=== PATIENT | male | born 1970 | race Caucasian/White ===

== ENCOUNTER 2021-06-15 15:51 | Inpatient (IN) | payer OTHER ==
[2021-06-15 16:59] VITALS: BMI 25.0
[2021-06-15] MEDS: ALBUTEROL SO4 HFA INHALER IH PRN (17:03)
[2021-06-15] MEDS ORDERED: IBUPROFEN 400 MG TABLET (FP) PO PRN (18:21)
[2021-06-15] MEDS ORDERED: MAGNESIUM HYDROX 2400MG/30ML ORAL SUSPENSION 30 ML CUP PO PRN (18:21)
[2021-06-15] MEDS ORDERED: ONDANSETRON *ODT* 4 MG TABLET SL PRN (18:21)
[2021-06-15] MEDS ORDERED: LOPERAMIDE HCL 2 MG CAPSULE PO PRN (18:21)
[2021-06-15] MEDS ORDERED: ACETAMINOPHEN 325 MG TABLET (FP) PO PRN ×2 (18:21)
[2021-06-15] MEDS ORDERED: MAGNESIUM CITRATE 300 ML BOTTLE PO PRN (18:21)
[2021-06-15] MEDS ORDERED: NICOTINE 10 MG CARTRIDGE (INHALER) IH PRN (18:21)
[2021-06-15] MEDS ORDERED: MENTHOL/PHENOL 1 EACH UD MM PRN (18:21)
[2021-06-15] MEDS ORDERED: BISMUTH SUBSALICYLATE 524 MG/30 ML PO PRN (18:21)
[2021-06-15] MEDS: METHOCARBAMOL 500 MG TABLET PO PRN (20:14)
[2021-06-15] MEDS: cloNIDine HCL 0.1 MG TABLET PO PRN (20:14)
[2021-06-15] MEDS: ALBUTEROL SO4 2.5/IPRATROPIUM 0.5 INH SOL 3 ML VIAL.NEB. NEB SCH (20:15)
[2021-06-15] MEDS: PRENATAL VITAMINS W/ FOLIC ACID TABLET (FP) PO SCH (20:16)
[2021-06-15] MEDS: THIAMINE HCL 100 MG TABLET (FP) PO SCH (22:57)
[2021-06-15] MEDS: MELATONIN 5 MG TABLETS PO SCH (22:57)
[2021-06-15] MEDS: hydrOXYzine PAMOATE 25 MG CAPSULE (FP) PO SCH (22:57)
[2021-06-16] MEDS ORDERED: ALBUTEROL SO4 HFA INHALER IH ONE (00:51)
[2021-06-16] MEDS: hydrOXYzine PAMOATE 25 MG CAPSULE (FP) PO SCH ×5 (06:53→21:54)
[2021-06-16] MEDS ORDERED: methaDONE HCL 10 MG TABLET (FOR DETOX USE ONLY) PO ONE (09:37)
[2021-06-16 09:53] LABS: HEMATOCRIT 39.1 % (35.4-49); HEMOGLOBIN 13.4 GM/dL (11.7-16.9); MCH 30.8 pg (25.7-33.7); MCHC 34.4 g/dl (32.0-35.9); MEAN CELL VOLUME 89.5 fl (80-96); MEAN PLT VOLUME 9.4 fl (7.5-11.1); PLATELET COUNT 197 10^3/uL (134-434); RBC 4.36 M/mm3 (4.00-5.60); WHITE BLOOD COUNT 15.4 K/mm3 (4.0-10.0)
[2021-06-16 10:00] LABS: BLOOD UREA NITROGEN 13.4 mg/dL (7-18); CALCIUM 9.1 mg/dL (8.5-10.1)
[2021-06-16 10:01] LABS: ALBUMIN 3.4 g/dl (3.4-5.0)
[2021-06-16 10:03] LABS: CREATININE 0.8 mg/dL (0.55-1.3)
[2021-06-16 10:05] LABS: BILIRUBIN,TOTAL 1.5 mg/dL (0.2-1); TOT PROT 6.8 g/dl (6.4-8.2)
[2021-06-16] MEDS: PRENATAL VITAMINS W/ FOLIC ACID TABLET (FP) PO SCH (10:24)
[2021-06-16] MEDS: NICOTINE 7 MG/24 HOURS TOPICAL PATCH TD SCH (11:57)
[2021-06-16] MEDS: ALBUTEROL SO4 2.5/IPRATROPIUM 0.5 INH SOL 3 ML VIAL.NEB. NEB SCH ×3 (15:33→23:55)
[2021-06-16] MEDS: ALBUTEROL SO4 HFA INHALER IH PRN (21:25)
[2021-06-16] MEDS: traZODone HCL 50 MG TABLET (FP) PO SCH (21:54)
[2021-06-16] MEDS: MELATONIN 5 MG TABLETS PO SCH (21:55)
[2021-06-16] MEDS: THIAMINE HCL 100 MG TABLET (FP) PO SCH (21:55)
[2021-06-17] MEDS: hydrOXYzine PAMOATE 25 MG CAPSULE (FP) PO SCH ×5 (05:17→21:41)
[2021-06-17] MEDS: METHOCARBAMOL 500 MG TABLET PO PRN ×2 (05:17→09:56)
[2021-06-17] MEDS: diazePAM 5 MG TABLET PO PRN ×3 (05:18→17:48)
[2021-06-17] MEDS: ALBUTEROL SO4 2.5/IPRATROPIUM 0.5 INH SOL 3 ML VIAL.NEB. NEB SCH ×3 (09:32→20:58)
[2021-06-17] MEDS ORDERED: methaDONE HCL 10 MG TABLET (FOR DETOX USE ONLY) ONE (09:41)
[2021-06-17] MEDS: ALBUTEROL SO4 HFA INHALER IH PRN ×2 (09:56→17:52)
[2021-06-17] MEDS: PRENATAL VITAMINS W/ FOLIC ACID TABLET (FP) PO SCH (09:59)
[2021-06-17] MEDS: NICOTINE 7 MG/24 HOURS TOPICAL PATCH TD SCH (09:59)
[2021-06-17 10:08] LABS: SARS-CoV-2 NAA Not Detected (Not Detected)
[2021-06-17 14:15] LABS: BASO % 0.2 % (0-2.0); HEMATOCRIT 36.9 % (35.4-49); HEMOGLOBIN 12.2 GM/dL (11.7-16.9); LYMPH % 10.7 % (8-40); MCHC 32.9 g/dl (32.0-35.9); MEAN PLT VOLUME 9.5 fl (7.5-11.1); MONO % 9.6 % (3.8-10.2); NEUT % 77.5 % (42.8-82.8); PLATELET COUNT 200 10^3/uL (134-434); RBC 4.06 M/mm3 (4.00-5.60); RDW 14.6 % (11.9-15.9); WHITE BLOOD COUNT 12.9 K/mm3 (4.0-10.0)
[2021-06-17 14:25] LABS: BLOOD UREA NITROGEN 14.8 mg/dL (7-18); CALCIUM 8.4 mg/dL (8.5-10.1)
[2021-06-17 14:26] LABS: ALBUMIN 2.8 g/dl (3.4-5.0)
[2021-06-17 14:28] LABS: CREATININE 0.8 mg/dL (0.55-1.3)
[2021-06-17 14:30] LABS: BILIRUBIN,TOTAL 0.9 mg/dL (0.2-1); TOT PROT 5.6 g/dl (6.4-8.2)
[2021-06-17] MEDS: THIAMINE HCL 100 MG TABLET (FP) PO SCH (21:41)
[2021-06-17] MEDS: traZODone HCL 50 MG TABLET (FP) PO SCH (21:41)
[2021-06-17] MEDS: MELATONIN 5 MG TABLETS PO SCH (21:52)
[2021-06-17] MEDS: cloNIDine HCL 0.1 MG TABLET PO PRN (22:03)
[2021-06-18] MEDS: hydrOXYzine PAMOATE 25 MG CAPSULE (FP) PO SCH ×5 (06:30→22:31)
[2021-06-18] MEDS: ALBUTEROL SO4 HFA INHALER IH PRN ×2 (08:51→22:31)
[2021-06-18] MEDS: ALBUTEROL SO4 2.5/IPRATROPIUM 0.5 INH SOL 3 ML VIAL.NEB. NEB SCH ×3 (08:51→20:09)
[2021-06-18] MEDS: diazePAM 5 MG TABLET PO PRN (09:30)
[2021-06-18] MEDS: METHOCARBAMOL 500 MG TABLET PO PRN ×2 (09:30→22:31)
[2021-06-18] MEDS: PRENATAL VITAMINS W/ FOLIC ACID TABLET (FP) PO SCH (09:32)
[2021-06-18] MEDS: NICOTINE 7 MG/24 HOURS TOPICAL PATCH TD SCH (09:37)
[2021-06-18] MEDS ORDERED: methaDONE HCL 10 MG TABLET (FOR DETOX USE ONLY) PO ONE (10:00)
[2021-06-18] MEDS: cloNIDine HCL 0.1 MG TABLET PO PRN ×2 (18:27→22:31)
[2021-06-18] MEDS: MELATONIN 5 MG TABLETS PO SCH (22:31)
[2021-06-18] MEDS: THIAMINE HCL 100 MG TABLET (FP) PO SCH (22:31)
[2021-06-18] MEDS: traZODone HCL 50 MG TABLET (FP) PO SCH (22:32)
[2021-06-19] MEDS: hydrOXYzine PAMOATE 25 MG CAPSULE (FP) PO SCH ×3 (05:51→14:55)
[2021-06-19] MEDS: MAG HYDROX/AL HYDROX/SIMETH 30 ML UNIT-DOSE CUP PO PRN ×2 (07:33→19:08)
[2021-06-19] MEDS: ALBUTEROL SO4 2.5/IPRATROPIUM 0.5 INH SOL 3 ML VIAL.NEB. NEB SCH ×2 (07:34→19:13)
[2021-06-19] MEDS: diazePAM 5 MG TABLET PO PRN (09:35)
[2021-06-19] MEDS ORDERED: methaDONE HCL 10 MG TABLET (FOR DETOX USE ONLY) ONE (09:54)
[2021-06-19] MEDS: predniSONE 20 MG TABLET (UD) PO SCH (10:20)
[2021-06-19] MEDS: NICOTINE 7 MG/24 HOURS TOPICAL PATCH TD SCH (10:21)
[2021-06-19] MEDS: PRENATAL VITAMINS W/ FOLIC ACID TABLET (FP) PO SCH (10:21)
[2021-06-19] MEDS: METHOCARBAMOL 500 MG TABLET PO PRN ×2 (10:21→17:38)
[2021-06-19] MEDS: ALBUTEROL SO4 HFA INHALER IH PRN ×3 (10:24→22:21)
[2021-06-19] MEDS: hydrOXYzine PAMOATE 25 MG CAPSULE (FP) PO PRN (17:38)
[2021-06-19] MEDS: cloNIDine HCL 0.1 MG TABLET PO PRN (17:39)
[2021-06-19] MEDS: traZODone HCL 50 MG TABLET (FP) PO SCH (22:20)
[2021-06-19] MEDS: MELATONIN 5 MG TABLETS PO SCH (22:20)
[2021-06-19] MEDS: THIAMINE HCL 100 MG TABLET (FP) PO SCH (22:20)
[2021-06-20] MEDS: MAG HYDROX/AL HYDROX/SIMETH 30 ML UNIT-DOSE CUP PO PRN (05:50)
[2021-06-20] MEDS: ALBUTEROL SO4 2.5/IPRATROPIUM 0.5 INH SOL 3 ML VIAL.NEB. NEB SCH ×2 (08:59→21:51)
[2021-06-20] MEDS ORDERED: methaDONE HCL 10 MG TABLET (FOR DETOX USE ONLY) PO ONE (10:00)
[2021-06-20] MEDS: PRENATAL VITAMINS W/ FOLIC ACID TABLET (FP) PO SCH (10:18)
[2021-06-20] MEDS: predniSONE 20 MG TABLET (UD) PO SCH (10:18)
[2021-06-20] MEDS: hydrOXYzine PAMOATE 25 MG CAPSULE (FP) PO PRN ×2 (10:19→22:10)
[2021-06-20] MEDS: NICOTINE 7 MG/24 HOURS TOPICAL PATCH TD SCH (10:20)
[2021-06-20] MEDS: ALBUTEROL SO4 HFA INHALER IH PRN (14:25)
[2021-06-20] MEDS: cloNIDine HCL 0.1 MG TABLET PO PRN (22:09)
[2021-06-20] MEDS: MELATONIN 5 MG TABLETS PO SCH (22:09)
[2021-06-20] MEDS: THIAMINE HCL 100 MG TABLET (FP) PO SCH (22:09)
[2021-06-20] MEDS: traZODone HCL 50 MG TABLET (FP) PO SCH (22:09)
[2021-06-21] MEDS: ALBUTEROL SO4 HFA INHALER IH PRN (05:28)
[2021-06-21] MEDS: MAG HYDROX/AL HYDROX/SIMETH 30 ML UNIT-DOSE CUP PO PRN (05:29)
[2021-06-21 06:52] VITALS: PULSE 64
[2021-06-21 08:44] VITALS: BP 124/77; TEMP 96.9
[2021-06-21] MEDS: predniSONE 20 MG TABLET (UD) PO SCH (10:18)
[2021-06-21] MEDS: PRENATAL VITAMINS W/ FOLIC ACID TABLET (FP) PO SCH (10:18)
[2021-06-21] MEDS: ALBUTEROL SO4 2.5/IPRATROPIUM 0.5 INH SOL 3 ML VIAL.NEB. NEB SCH (10:19)
[2021-06-21] MEDS: NICOTINE 7 MG/24 HOURS TOPICAL PATCH TD SCH (10:19)
== END 2021-06-21 10:50 | disposition home or self-care (01) | DRG 773 ==
LOC: YASAS 15:51 → Y3N 19:01
PROVIDERS: ADMIT Allergy & Immunology; ATTEND Allergy & Immunology
PROC: HZ2ZZZZ Detoxification Services for Substance Abuse Treatment (ICD-10-PCS; principal; 2021-06-15)
DX: F11.23 Opioid dependence with withdrawal (principal); F14.20 Cocaine dependence, uncomplicated; F17.210 Nicotine dependence, cigarettes, uncomplicated; F19.24 Other psychoactive substance dependence with psychoactive substance-induced mood disorder; F41.9 Anxiety disorder, unspecified; F32.A Depression, unspecified; J45.901 Unspecified asthma with (acute) exacerbation; Z56.0 Unemployment, unspecified; Z59.01 Sheltered homelessness
CPT/HCPCS: 36415; 71046-TC-FY; 80053; 82947; 85025; 85027; 86780; 87811; 94640; C9803; J0735; U0003; U0005

== ENCOUNTER 2021-06-18 09:55 | Emergency (ER) | payer OTHER ==
[2021-06-18 10:00] VITALS: BP 135/69; PULSE 114; TEMP 98.9; BMI 25.0
[2021-06-18] MEDS: ALBUTEROL SO4 2.5/IPRATROPIUM 0.5 INH SOL 3 ML VIAL.NEB. NEB SCH ×3 (10:29→11:15)
[2021-06-18] MEDS ORDERED: predniSONE 20 MG TABLET (UD) PO ONE (10:42)
[2021-06-18] MEDS ORDERED: predniSONE 20 MG TABLET (UD) ONE (10:58)
[2021-06-18] MEDS ORDERED: ALBUTEROL SO4 2.5/IPRATROPIUM 0.5 INH SOL 3 ML VIAL.NEB. NEB ONE ×2 (10:58→11:33)
== END 2021-06-18 13:00 | disposition home or self-care (01) ==
LOC: JER 09:55
PROC: 3E0F7GC Introduction of Other Therapeutic Substance into Respiratory Tract, Via Natural or Artificial Opening (ICD-10-PCS; principal; 2021-06-18)
DX: J45.21 Mild intermittent asthma with (acute) exacerbation (principal)
CPT/HCPCS: 99283-25

== ENCOUNTER 2022-07-04 15:57 | Inpatient (IN) | payer OTHER ==
[2022-07-04 19:20] VITALS: BMI 26.3
[2022-07-04] MEDS ORDERED: IBUPROFEN 600 MG TABLET (FP) PO PRN (19:41)
[2022-07-04] MEDS ORDERED: NALOXONE HCL (KLOXXADO) 8 MG SPRAY NS PRN (19:41)
[2022-07-04] MEDS ORDERED: BISMUTH SUBSALICYLATE 524 MG/30 ML PO PRN (19:41)
[2022-07-04] MEDS ORDERED: IBUPROFEN 400 MG TABLET (FP) PO PRN (19:41)
[2022-07-04] MEDS ORDERED: guaiFENesin 600 MG TABLET.ER (FP) PO PRN (19:41)
[2022-07-04] MEDS ORDERED: NICOTINE POLACRILEX 2 MG GUM BUC PRN (19:41)
[2022-07-04] MEDS ORDERED: ONDANSETRON *ODT* 4 MG TABLET SL PRN (19:41)
[2022-07-04] MEDS ORDERED: MAG HYDROX/AL HYDROX/SIMETH 30 ML UNIT-DOSE CUP PO PRN (19:41)
[2022-07-04] MEDS ORDERED: MAGNESIUM HYDROX 2400MG/30ML ORAL SUSPENSION 30 ML CUP PO PRN (19:41)
[2022-07-04] MEDS ORDERED: BENZONATATE 200 MG CAPSULE PO PRN (19:41)
[2022-07-04] MEDS ORDERED: hydrOXYzine PAMOATE 25 MG CAPSULE (FP) PO PRN (19:41)
[2022-07-04] MEDS ORDERED: BENZOCAINE/MENTHOL (CHLORASEPTIC ) LOZENGE MM PRN (19:41)
[2022-07-04] MEDS ORDERED: NALOXONE HCL 0.4 MG/ML VIAL IM PRN (19:41)
[2022-07-04] MEDS ORDERED: ACETAMINOPHEN 325 MG TABLET (FP) PO PRN (19:41)
[2022-07-04] MEDS ORDERED: DICYCLOMINE HCL 10 MG CAPSULE PO PRN (19:41)
[2022-07-04] MEDS ORDERED: LOPERAMIDE HCL 2 MG CAPSULE PO PRN (19:41)
[2022-07-04] MEDS ORDERED: POLYETHYLENE GLYCOL (HEALTHYLAX) 3350 17 GM PACKET PO PRN (19:41)
[2022-07-04] MEDS ORDERED: ALBUTEROL SO4 0.083% IH SOL 2.5 MG/3 ML VIAL.NEB. NEB PRN (19:44)
[2022-07-04] MEDS ORDERED: ALBUTEROL SO4 0.083% IH SOL 2.5 MG/3 ML VIAL.NEB. NEB ONE (20:16)
[2022-07-04] MEDS: THIAMINE HCL 100 MG TABLET (FP) PO SCH (21:32)
[2022-07-04] MEDS: MELATONIN 5 MG TABLETS PO SCH (21:32)
[2022-07-05] MEDS: ALBUTEROL SO4 HFA INHALER IH PRN ×4 (00:56→20:46)
[2022-07-05] MEDS ORDERED: cloNIDine HCL 0.1 MG TABLET PO PRN (10:14)
[2022-07-05] MEDS ORDERED: chlordiazePOXIDE HCL 25 MG CAPSULE PO PRN (10:14)
[2022-07-05] MEDS: NICOTINE 14 MG/24 HOURS TOPICAL PATCH TD SCH (10:20)
[2022-07-05] MEDS: PRENATAL VITAMINS W/ FOLIC ACID TABLET (FP) PO SCH (10:21)
[2022-07-05] MEDS ORDERED: methaDONE HCL 10 MG TABLET (FOR DETOX USE ONLY) PO ONE (10:45)
[2022-07-05] MEDS: chlordiazePOXIDE HCL 25 MG CAPSULE PO SCH ×3 (10:56→22:14)
[2022-07-05 12:05] LABS: HEMATOCRIT 31.8 % (35.4-49); HEMOGLOBIN 11.4 GM/dL (11.7-16.9); MCH 30.4 pg (25.7-33.7); MCHC 35.7 g/dl (32.0-35.9); MEAN PLT VOLUME 9.1 fl (7.5-11.1); PLATELET COUNT 202 10^3/uL (134-434); RBC 3.74 M/mm3 (4.00-5.60); RDW 14.1 % (11.9-15.9); WHITE BLOOD COUNT 10.4 K/mm3 (4.0-10.0)
[2022-07-05 12:36] LABS: CALCIUM 8.7 mg/dL (8.5-10.1)
[2022-07-05 12:37] LABS: ALBUMIN 3.4 g/dl (3.4-5.0); BLOOD UREA NITROGEN 15.8 mg/dL (7-18)
[2022-07-05 12:40] LABS: CREATININE 0.6 mg/dL (0.55-1.3)
[2022-07-05 12:41] LABS: TOT PROT 6.2 g/dl (6.4-8.2)
[2022-07-05 12:42] LABS: BILIRUBIN,TOTAL 0.4 mg/dL (0.2-1)
[2022-07-05] MEDS: QUEtiapine FUMARATE 50 MG TABLET PO SCH (22:14)
[2022-07-05] MEDS: MELATONIN 5 MG TABLETS PO SCH (22:14)
[2022-07-05] MEDS: traZODone HCL 100 MG TABLET (FP) PO SCH (22:14)
[2022-07-05] MEDS: THIAMINE HCL 100 MG TABLET (FP) PO SCH (22:14)
[2022-07-06] MEDS: chlordiazePOXIDE HCL 25 MG CAPSULE PO SCH ×4 (05:20→22:41)
[2022-07-06] MEDS: ALBUTEROL SO4 HFA INHALER IH PRN ×2 (08:05→18:05)
[2022-07-06] MEDS: NICOTINE 14 MG/24 HOURS TOPICAL PATCH TD SCH (10:37)
[2022-07-06] MEDS: METHOCARBAMOL 500 MG TABLET PO PRN (10:37)
[2022-07-06] MEDS: PRENATAL VITAMINS W/ FOLIC ACID TABLET (FP) PO SCH (10:39)
[2022-07-06] MEDS: traZODone HCL 100 MG TABLET (FP) PO SCH (22:41)
[2022-07-06] MEDS: QUEtiapine FUMARATE 50 MG TABLET PO SCH (22:41)
[2022-07-06] MEDS: MELATONIN 5 MG TABLETS PO SCH (22:41)
[2022-07-06] MEDS: THIAMINE HCL 100 MG TABLET (FP) PO SCH (22:41)
[2022-07-07] MEDS: chlordiazePOXIDE HCL 25 MG CAPSULE PO SCH ×4 (05:34→22:03)
[2022-07-07] MEDS: ALBUTEROL SO4 HFA INHALER IH PRN (05:37)
[2022-07-07] MEDS ORDERED: methaDONE HCL 10 MG TABLET (FOR DETOX USE ONLY) PO ONE (10:00)
[2022-07-07] MEDS: PRENATAL VITAMINS W/ FOLIC ACID TABLET (FP) PO SCH (10:13)
[2022-07-07] MEDS: NICOTINE 14 MG/24 HOURS TOPICAL PATCH TD SCH (10:14)
[2022-07-07 12:48] LABS: HEMATOCRIT 32.7 % (35.4-49); HEMOGLOBIN 11.5 GM/dL (11.7-16.9); MCH 29.9 pg (25.7-33.7); MCHC 35.1 g/dl (32.0-35.9); MEAN CELL VOLUME 85.2 fl (80-96); MEAN PLT VOLUME 9.1 fl (7.5-11.1); PLATELET COUNT 220 10^3/uL (134-434); RBC 3.84 M/mm3 (4.00-5.60); RDW 13.7 % (11.9-15.9); WHITE BLOOD COUNT 4.9 K/mm3 (4.0-10.0)
[2022-07-07] MEDS: QUEtiapine FUMARATE 50 MG TABLET PO SCH (22:03)
[2022-07-07] MEDS: MELATONIN 5 MG TABLETS PO SCH (22:03)
[2022-07-07] MEDS: traZODone HCL 100 MG TABLET (FP) PO SCH (22:04)
[2022-07-07] MEDS: THIAMINE HCL 100 MG TABLET (FP) PO SCH (22:04)
[2022-07-08] MEDS ORDERED: chlordiazePOXIDE HCL 10 MG CAPSULE PO PRN
[2022-07-08] MEDS: chlordiazePOXIDE HCL 10 MG CAPSULE PO SCH ×4 (05:48→22:30)
[2022-07-08] MEDS: ALBUTEROL SO4 HFA INHALER IH PRN ×2 (06:22→17:42)
[2022-07-08] MEDS: PRENATAL VITAMINS W/ FOLIC ACID TABLET (FP) PO SCH (10:41)
[2022-07-08] MEDS: METHOCARBAMOL 500 MG TABLET PO PRN (10:42)
[2022-07-08] MEDS: NICOTINE 14 MG/24 HOURS TOPICAL PATCH TD SCH (10:44)
[2022-07-08] MEDS: QUEtiapine FUMARATE 50 MG TABLET PO SCH (22:30)
[2022-07-08] MEDS: THIAMINE HCL 100 MG TABLET (FP) PO SCH (22:30)
[2022-07-08] MEDS: traZODone HCL 100 MG TABLET (FP) PO SCH (22:30)
[2022-07-08] MEDS: MELATONIN 5 MG TABLETS PO SCH (22:30)
[2022-07-09] MEDS: chlordiazePOXIDE HCL 10 MG CAPSULE PO SCH ×2 (06:16→17:47)
[2022-07-09] MEDS: ALBUTEROL SO4 HFA INHALER IH PRN ×2 (06:22→18:46)
[2022-07-09] MEDS ORDERED: methaDONE HCL 10 MG TABLET (FOR DETOX USE ONLY) PO ONE (10:00)
[2022-07-09] MEDS: PRENATAL VITAMINS W/ FOLIC ACID TABLET (FP) PO SCH (10:15)
[2022-07-09] MEDS: NICOTINE 14 MG/24 HOURS TOPICAL PATCH TD SCH (10:17)
[2022-07-09] MEDS: traZODone HCL 100 MG TABLET (FP) PO SCH (22:21)
[2022-07-09] MEDS: THIAMINE HCL 100 MG TABLET (FP) PO SCH (22:21)
[2022-07-09] MEDS: QUEtiapine FUMARATE 50 MG TABLET PO SCH (22:21)
[2022-07-09] MEDS: MELATONIN 5 MG TABLETS PO SCH (22:21)
[2022-07-10] MEDS ORDERED: chlordiazePOXIDE HCL 10 MG CAPSULE PO ONE (05:00)
[2022-07-10 06:22] VITALS: PULSE 90; RESP 16; TEMP 97.3
[2022-07-10 09:16] VITALS: BP 97/60
[2022-07-10] MEDS: PRENATAL VITAMINS W/ FOLIC ACID TABLET (FP) PO SCH (10:20)
[2022-07-10] MEDS: NICOTINE 14 MG/24 HOURS TOPICAL PATCH TD SCH (10:20)
[2022-07-10] MEDS: ALBUTEROL SO4 HFA INHALER IH PRN (11:16)
== END 2022-07-10 11:33 | disposition home or self-care (01) | DRG 773 ==
LOC: YASAS 15:57 → Y3N 20:52
PROVIDERS: ADMIT Allergy & Immunology; ATTEND Surgery
PROC: HZ2ZZZZ Detoxification Services for Substance Abuse Treatment (ICD-10-PCS; principal; 2022-07-04)
DX: F11.23 Opioid dependence with withdrawal (principal); F10.230 Alcohol dependence with withdrawal, uncomplicated; F14.20 Cocaine dependence, uncomplicated; F17.210 Nicotine dependence, cigarettes, uncomplicated; F19.24 Other psychoactive substance dependence with psychoactive substance-induced mood disorder; G47.00 Insomnia, unspecified; J45.20 Mild intermittent asthma, uncomplicated; Z56.0 Unemployment, unspecified; Z59.01 Sheltered homelessness
CPT/HCPCS: 36415; 80053; 85027; 86780; 94640; C9803-CS; U0003; U0005